=== PATIENT | female | born 1980 | race Caucasian/White ===

== ENCOUNTER 2017-10-06 17:39 | Emergency (ER) | payer OTHER ==
[~2017-10-06] VITALS: Ht 162.6 cm; Wt 104.3 kg
[2017-10-06] MEDS ORDERED: METHYLPREDNISOLONE SOD SUCC 125 MG/2ML VIAL IV ONE (18:15)
[2017-10-06] MEDS ORDERED: ALBUTEROL/IPRATROPIUM 3 ML NEB NEB ONE (18:15)
--- NOTE | 2017-10-06 18:57 | Diagnostic Imaging Report ---
EXAMINATION: CHEST 2 VIEWS INDICATION: \S\bilateral wheezing, cough, fever \S\[id number] \S\182 COMPARISON: None FINDINGS: PA and lateral views TUBES and LINES: None. LUNGS: Lungs are well inflated. Lungs are clear. There is no evidence of pneumonia or pulmonary edema. PLEURA: No pleural effusion or pneumothorax. HEART AND MEDIASTINUM: The cardiomediastinal silhouette is unremarkable. BONES AND SOFT TISSUES: No acute osseous lesion. Soft tissues are unremarkable. UPPER ABDOMEN: No free air under the diaphragm. IMPRESSION: No acute thoracic abnormality. Signed by: Dr. Cammy Galarza M.D. on 10/06/2017 6:54 PM
== END 2017-10-06 19:47 | disposition home or self-care (01) ==
LOC: ER 17:39
DX: R06.2 Wheezing (principal); R05 Cough; F17.210 Nicotine dependence, cigarettes, uncomplicated
CPT/HCPCS: 71046; 94640; 99284; J2930

== ENCOUNTER → 2020-11-01 | Day surgery (SDC) | payer OTHER ==
[~2020-11-01] MED LIST: CLINDAMYCIN PHOS 900MG/ 50ML 50 ML IV ONE; EPINEPHRINE 1 MG/ML 30ML VIAL ONE; FENTANYL CITRATE/PF 100MCG/2 ML INJ ONE; KETOROLAC TROMETHAMINE 30 MG/ML VIAL ONE; PRILOSEC OTC20 MG PO
[2020-11-01 10:45] VITALS: BP 120/69
== END | disposition home or self-care (01) ==
LOC: OR 05:49
PROVIDERS: ATTEND Specialist
DX: S46.011A Strain of muscle(s) and tendon(s) of the rotator cuff of right shoulder, initial encounter (principal); E66.01 Morbid (severe) obesity due to excess calories; K21.9 Gastro-esophageal reflux disease without esophagitis; R00.1 Bradycardia, unspecified; F17.200 Nicotine dependence, unspecified, uncomplicated; V89.2XXA Person injured in unspecified motor-vehicle accident, traffic, initial encounter; Z88.0 Allergy status to penicillin; Z01.810 Encounter for preprocedural cardiovascular examination; Z01.812 Encounter for preprocedural laboratory examination; Z01.818 Encounter for other preprocedural examination; Z20.822 Contact with and (suspected) exposure to COVID-19; Z68.42 Body mass index [BMI] 45.0-49.9, adult
CPT/HCPCS: 29827; 71046; 81025; 93005; C1713; J1885; J3010; U0002

== ENCOUNTER 2021-04-12 12:47 | Emergency (ER) | payer BC, OTHER ==
[~2021-04-12] VITALS: Ht 162.6 cm; Wt 104.3 kg
[~2021-04-12 12:47] MED LIST changes: -CLINDAMYCIN PHOS 900MG/ 50ML 50 ML IV ONE; -EPINEPHRINE 1 MG/ML 30ML VIAL ONE; -FENTANYL CITRATE/PF 100MCG/2 ML INJ ONE; -KETOROLAC TROMETHAMINE 30 MG/ML VIAL ONE
[2021-04-12] MEDS ORDERED: DEXAMETHASONE SOD PHOS 10 MG/1 ML VIAL IM NR (13:00)
== END 2021-04-12 13:40 | disposition home or self-care (01) ==
LOC: ER 12:51
DX: J02.9 Acute pharyngitis, unspecified (principal); R05.9 Cough, unspecified; Z20.822 Contact with and (suspected) exposure to COVID-19; F17.210 Nicotine dependence, cigarettes, uncomplicated
CPT/HCPCS: 99283; U0002

== ENCOUNTER 2024-03-24 21:29 | Emergency (ER) | payer BC, OTHER ==
[~2024-03-24] VITALS: Ht 162.6 cm; Wt 118.4 kg
[2024-03-24 22:34] LABS: BASOPHILS # (AUTO) 0.1 (0.0-0.1); BASOPHILS % 0.5 % (0.0-1.0); EOSINOPHILS # (AUTO) 0.5 (0.0-0.4); EOSINOPHILS % 3.6 % (0.0-6.0); HEMATOCRIT 43.7 % (34.2-44.1); HEMOGLOBIN 13.9 g/dL (12.0-16.0); LYMPHOCYTES # (AUTO) 2.7 (1.0-3.2); LYMPHOCYTES % 18.6 % (18.0-39.1); MEAN CORPUSCULAR HEMOGLOBIN 29.2 pg (28-32); MEAN CORPUSCULAR HGB CONC 31.8 g/dL (31-35); MEAN CORPUSCULAR VOLUME 91.8 fL (81-99); NEUTROPHILS # (AUTO) 10.2 (2.1-6.9); NEUTROPHILS % 69.6 % (38.7-80.0); PLATELET COUNT 213 x10e3/uL (140-360); RED BLOOD COUNT 4.76 x10e6/uL (3.6-5.1); RED CELL DISTRIBUTION WIDTH 13.8 % (11.7-14.4)
[2024-03-24 22:43] LABS: PREGNANCY TEST, URINE NEGATIVE (NEGATIVE)
[2024-03-24 22:55] LABS: TROPONIN I 0.002 ng/mL (0-0.300)
[2024-03-24 23:02] LABS: ALBUMIN 3.7 g/dL (3.5-5.0); ALBUMIN/GLOBULIN RATIO 1.1 (0.8-2.0); ANION GAP 16.7 mmol/L (8-16); BILIRUBIN,TOTAL 0.4 mg/dL (0.2-1.2); CALCIUM 9.6 mg/dL (8.4-10.2); CREATININE, SERUM 0.78 mg/dL (0.57-1.11); POTASSIUM 3.7 mmol/L (3.5-5.1)
[2024-03-24] MEDS: ONDANSETRON HCL INJ 2MG/ML 2ML 2 MG/ML VIAL IV STA (23:04)
[2024-03-24] MEDS: SODIUM CHLORIDE 0.9% 1000ML 1,000 ML IV ONE (23:05)
[2024-03-24] MEDS: DICYCLOMINE HCL 20 MG/2 ML VIAL IM ONE (23:05)
[2024-03-24] MEDS: KETOROLAC TROMETHAMINE 30 MG/ML VIAL IV STA (23:05)
[2024-03-24 23:09] LABS: COLOR,URINE YELLOW (YELLOW)
[2024-03-24 23:10] LABS: BILIRUBIN,URINE NEGATIVE (NEGATIVE); CLARITY,URINE SL CLOUDY (CLEAR); GLUCOSE, URINE NEGATIVE (NEGATIVE); KETONES,URINE NEGATIVE (NEGATIVE); LEUKOCYTE ESTERASE ,URINE NEGATIVE (NEGATIVE); NITRITE,URINE NEGATIVE (NEGATIVE); PH,URINE 6.5 (5 - 7); PROTEIN,URINE DIPSTICK NEGATIVE (NEGATIVE); URINE UROBILINOGEN 0.2 mg/dL (0.2 - 1)
[2024-03-24 23:11] LABS: BACTERIA,URINE MANY /HPF; EPITHELIAL CELLS,URINE MANY /LPF
[2024-03-25] MEDS: Morphine 4mg INJECTION 4 MG/ML INJ IV ONE (00:24)
[2024-03-25 01:00] VITALS: PULSE 70; RESP 18; TEMP 98.6; O2SAT 96
[2024-03-25] MEDS ORDERED: DICYCLOMINE HCL20 MG PO (01:03)
[2024-03-25] MEDS ORDERED: HYDROCODON-ACE1 EA12 PEG (01:03)
[2024-03-25] MEDS ORDERED: ONDANSETRON ODT4 MG SL (01:03)
[2024-03-25] MEDS ORDERED: PANTOPRAZOLE SO40 MG PO (01:03)
== END 2024-03-25 01:20 | disposition home or self-care (01) ==
LOC: ER 22:23
DX: R10.11 Right upper quadrant pain (principal); K80.20 Calculus of gallbladder without cholecystitis without obstruction; K80.50 Calculus of bile duct without cholangitis or cholecystitis without obstruction; R11.0 Nausea; K76.0 Fatty (change of) liver, not elsewhere classified; F17.210 Nicotine dependence, cigarettes, uncomplicated
CPT/HCPCS: 36415; 76705; 80053; 81001; 81025; 83690; 84484; 85025; 93005; 99284; J1885; J2270; J2405; J2470; J7030

== ENCOUNTER 2024-04-12 21:49 | Emergency (ER) | payer OTHER ==
[~2024-04-12] VITALS: Ht 162.6 cm; Wt 71.7 kg
[~2024-04-12 21:49] MED LIST changes: +DICYCLOMINE HCL20 MG PO; +HYDROCODON-ACE1 EA12 PEG; +ONDANSETRON ODT4 MG SL; +PANTOPRAZOLE SO40 MG PO
[2024-04-12 22:05] VITALS: TEMP 98.6
[2024-04-12 22:28] LABS: BASOPHILS # (AUTO) 0.1 (0.0-0.1); BASOPHILS % 0.5 % (0.0-1.0); EOSINOPHILS # (AUTO) 0.5 (0.0-0.4); EOSINOPHILS % 3.9 % (0.0-6.0); HEMATOCRIT 39.2 % (34.2-44.1); HEMOGLOBIN 13.1 g/dL (12.0-16.0); LYMPHOCYTES # (AUTO) 2.3 (1.0-3.2); LYMPHOCYTES % 17.8 % (18.0-39.1); MEAN CORPUSCULAR HEMOGLOBIN 29.2 pg (28-32); MEAN CORPUSCULAR HGB CONC 33.4 g/dL (31-35); MEAN CORPUSCULAR VOLUME 87.5 fL (81-99); MONOCYTES # (AUTO) 0.7 (0.2-0.8); MONOCYTES % 5.1 % (4.4-11.3); NEUTROPHILS # (AUTO) 9.3 (2.1-6.9); NEUTROPHILS % 72.3 % (38.7-80.0); PLATELET COUNT 336 x10e3/uL (140-360); RED BLOOD COUNT 4.48 x10e6/uL (3.6-5.1); RED CELL DISTRIBUTION WIDTH 14.4 % (11.7-14.4); WHITE BLOOD COUNT 12.91 x10e3/uL (4.8-10.8)
[2024-04-12] MEDS: Morphine 4mg INJECTION 4 MG/ML INJ IV ONE (22:37)
[2024-04-12] MEDS: ONDANSETRON HCL INJ 2MG/ML 2ML 2 MG/ML VIAL IV STA (22:37)
[2024-04-12] MEDS: DICYCLOMINE HCL 20 MG/2 ML VIAL IM ONE (22:37)
[2024-04-12] MEDS: SODIUM CHLORIDE 0.9% 1000ML 1,000 ML IV ONE (22:37)
[2024-04-12 23:17] LABS: ALBUMIN 3.5 g/dL (3.5-5.0); ANION GAP 14.8 mmol/L (8-16); BILIRUBIN,TOTAL 0.3 mg/dL (0.2-1.2); CALCIUM 9.4 mg/dL (8.4-10.2); CREATININE, SERUM 0.73 mg/dL (0.57-1.11); LIPASE 28 U/L (8-78); POTASSIUM 3.8 mmol/L (3.5-5.1); TOTAL PROTEIN 7.1 g/dL (6.5-8.1)
[2024-04-12] MEDS ORDERED: ULTRAM 50MG50 MG PO (23:34)
[2024-04-13 00:08] VITALS: PULSE 83; RESP 18; O2SAT 100
== END 2024-04-13 00:10 | disposition home or self-care (01) ==
LOC: ER 21:55
DX: R10.11 Right upper quadrant pain (principal); K80.20 Calculus of gallbladder without cholecystitis without obstruction; K80.50 Calculus of bile duct without cholangitis or cholecystitis without obstruction; F17.210 Nicotine dependence, cigarettes, uncomplicated
CPT/HCPCS: 36415; 80053; 83690; 84702; 85025; 99283; J2270; J2405; J2470; J7030